=== PATIENT | female | born 1970 | race Caucasian/White ===

== ENCOUNTER 2019-01-03 18:51 | Emergency (ER) | payer OTHER ==
[2019-01-03 18:55] VITALS: BP 143/65; PULSE 81; TEMP 98; BMI 25.4
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
[2019-01-03] MEDS ORDERED: IBUPROFEN 600 MG TABLET (FP) PO ONE ×2 (19:20→19:21)
== END 2019-01-03 19:41 | disposition home or self-care (01) ==
LOC: JERFT 18:51
PROC: 2W3CX1Z Immobilization of Right Lower Arm using Splint (ICD-10-PCS; principal; 2019-01-03)
DX: S13.4XXA Sprain of ligaments of cervical spine, initial encounter (principal); S63.501A Unspecified sprain of right wrist, initial encounter; V43.52XA Car driver injured in collision with other type car in traffic accident, initial encounter; Y93.89 Activity, other specified; Y92.488 Other paved roadways as the place of occurrence of the external cause
CPT/HCPCS: 99281-25

== ENCOUNTER 2020-05-26 04:42 | Day surgery (SDC) | payer BC ==
[2020-05-26] MEDS ORDERED: FERRIC CARBOXYMALTOSE 750 MG in SODIUM CHLORIDE 250 ML IVPB ONE (13:00)
[2020-05-26 14:37] VITALS: BP 115/66; PULSE 66; TEMP 98.1
== END 2020-05-26 14:40 | disposition home or self-care (01) ==
LOC: JINFUSION 04:42
PROVIDERS: ATTEND Family Medicine
PROC: 3E033GC Introduction of Other Therapeutic Substance into Peripheral Vein, Percutaneous Approach (ICD-10-PCS; principal; 2020-05-26)
DX: D50.9 Iron deficiency anemia, unspecified (principal)
CPT/HCPCS: 81025; 96365; J1439

== ENCOUNTER 2020-06-02 04:39 | Day surgery (SDC) | payer BC ==
[2020-06-02] MEDS ORDERED: FERRIC CARBOXYMALTOSE 750 MG in SODIUM CHLORIDE 250 ML IVPB ONE (13:00)
[2020-06-02 13:50] VITALS: BP 107/69; PULSE 80; TEMP 98
== END 2020-06-02 14:20 | disposition home or self-care (01) ==
LOC: JINFUSION 04:39
PROVIDERS: ATTEND Family Medicine
PROC: 3E033GC Introduction of Other Therapeutic Substance into Peripheral Vein, Percutaneous Approach (ICD-10-PCS; principal; 2020-06-02)
DX: D50.9 Iron deficiency anemia, unspecified (principal)
CPT/HCPCS: 96365; J1439